=== PATIENT | male | born 1940 | race Caucasian/White ===

== ENCOUNTER 2017-02-01 23:18 | Emergency (ER) | payer MEDICARE, BC ==
[2017-02-01 23:19] VITALS: O2SAT 99
[2017-02-01 23:47] VITALS: BP 178/87; PULSE 80; RESP 18; TEMP 97.3
== END 2017-02-02 01:13 | disposition home or self-care (01) | DRG 392 ==
LOC: ED 23:18
DX: K59.00 Constipation, unspecified (principal)
CPT/HCPCS: 74000; 99282; 99283